=== PATIENT | female | born 2000 | race African-American/Black ===

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

== ENCOUNTER 2022-10-08 06:41 | Emergency (ER) | payer MEDICAID ==
[2022-10-08 06:53] VITALS: BP 135/85
[2022-10-08] MEDS ORDERED: TOPUD MT (10:41)
[2022-10-08] MEDS ORDERED: IBUP-2029 MT (10:41)
[2022-10-08] MEDS ORDERED: AMOX-494 MT (10:41)
[2022-10-08] MEDS ORDERED: CLAR10 MT (10:41)
== END 2022-10-08 11:20 | disposition home or self-care (01) ==
LOC: ER 06:41
DX: J02.9 Acute pharyngitis, unspecified (principal); H92.09 Otalgia, unspecified ear
CPT/HCPCS: 81025; 99282